=== PATIENT | female | born 1985 | race Caucasian/White ===

== ENCOUNTER 2024-04-14 13:39 | Emergency (ER) | payer OTHER ==
[~2024-04-14] VITALS: Ht 165.1 cm; Wt 110.0 kg
[2024-04-14 13:43] VITALS: O2SAT 98
[2024-04-14] MEDS ORDERED: IBUP-1525 MT (15:52)
[2024-04-14] MEDS ORDERED: ACET-2708 MT (15:52)
[2024-04-14 16:35] VITALS: BP 144/71; PULSE 80; RESP 18; TEMP 98.6
== END 2024-04-14 16:36 | disposition home or self-care (01) ==
LOC: ER 13:39
DX: S20.219A Contusion of unspecified front wall of thorax, initial encounter (principal); F41.9 Anxiety disorder, unspecified; V49.9XXA Car occupant (driver) (passenger) injured in unspecified traffic accident, initial encounter; Y93.89 Activity, other specified; Y92.89 Other specified places as the place of occurrence of the external cause; Y99.8 Other external cause status
CPT/HCPCS: 71045; 99283